=== PATIENT | female | born 1955 | race Hispanic/Latino ===

== ENCOUNTER 2023-09-21 10:14 | Observation (INO) | payer OTHER ==
--- OUTSIDE RECORDS SUMMARY | 2023-09-21 10:17 | XMS REPORT | Continuity of Care Document ---
Author Name Unknown Address [address] [facility] [place] [address] [facility] Address [address] [place] [address] Care Team Providers Care Clerk General Name Role Phone Ruiz Sandhu Primary Care Physician + [phone] ROBIN SHAH Attending Clinician Unavailable [email or web address] Attending Clinician Unavaila ble SCOOTER WALLS Attending Clinician Unavail able Vaccine, Adc Family Medicine Attending Clinician Unavailable Scooter Walls DO Attending Clinician [phone] Vaccine, Ang Db Cbc Fam Attending Clinician Unav Tushar Courtney MD Attending Clinician [phone] TUSHAR TIPTON Attending Clinician Unavailable Doctor Unassigned, Colma Attending Clinician U navailable [email or web address] Admitting Clinician Unavaila ble Payers Payer Name Policy Type Policy Number Effective Date Expirati on Date Source MEDICARE PART A AND B [id number] 2018 00:00:00 MEDICARE PART A \T\ B [id number] 2018 00:00:00 [place] [facility] [id number] 2018 00:00:00 Allergies, Adverse Reactions, Alerts Allergy Name Allergy Type Status Severity Reaction(s) Onset Date Inactive Date Treating Clinician Comments Source NO KNOWN ALLERGIE S Drug Class Active [facility] Social History Social Habit Start Date Stop Date Quantity Comments Source Exposure to SARS-CoV-2 (event) Not sure [facility] Sex Assigned At 1955 00:00:00 1955 00:00:00 [facility] Smoking Status Start Date Stop Date Source Tobacco smoking consumption unknown [facility] Procedures Procedure Date / Time Performed Performing Clinicia n Source SARS-COV-2 COVID-19 VACCINE 18 YRS+, BIVALENT 0.5ML, IM (MODERNA BOOSTER) 2022-05-28 13:34:36 Doctor Unassigned, Colma [facility] SARS-COV-2 COVID-19 VACCINE BOOSTER,0.25ML,IM (MODERNA) 2021-12-11 14:03:09 Doctor Unassigned, Colma [facility] ASSIGNMENT OF BENEFITS 2021-12-11 13:42:39 Docto r Unassigned, Colma [facility] Encounters Start Date/Time End Date/Time Encounter Type Admission Type Attending [facility] Care Department Encounter ID Source 2023-08-29 08:30:00 2023-08-29 08:30:00 Outpatient ROBIN SHAH [facility] [id number] [facility] 2023-07-10 00:00:00 2023-07-10 00:00:00 Outpatient [email or web address]_S [facility] [id number] [facility] 2022-05-28 10:00:00 2022-05-28 10:00:00 Outpatient SCOOTER SWAN [facility] [id number] [facility] 2022-05-28 10:00:00 2022-05-28 10:00:00 Imm/Inj Visit Vaccine, Adc Family Medicine Scooter Walls [facility] [id number] [facility] 2022-05-28 08:30:00 2022-05-28 08:30:00 Outpatient Ej [facility] [id number] [facility] 2021-12-11 09:00:00 2021-12-11 09:10:00 Imm/Inj Visit Vaccine, Ang Db Cbc Tushar Olvera [facility] [id number] [facility] 2021-12-11 09:00:00 2021-12-11 09:00:00 Outpatient TUSHAR SUAREZ [facility] [id number] [facility] 2021-12-11 00:00:00 2021-12-11 00:00:00 Orders Only Doctor Unassigned, Colma [facility] [id number] [facility] 2021-05-29 15:20:00 2021-05-29 15:25:35 Outpatient SCOOTER SWAN [facility] [id number] [facility]
--- NOTE | 2023-09-21 10:57 | RAD REPORT ---
EXAM DESCRIPTION: CT - Ct Stroke Brain Wo Cont - 09/21/2023 10:47 am CLINICAL HISTORY: STROKE ALERT COMPARISON: No comparisons TECHNIQUE: Noncontrast head CT images were obtained without IV contrast. Multiplanar reformats were generated and reviewed. All CT scans are performed using dose optimization technique as appropriate and may include automated exposure control or mA/KV adjustment according to patient size. FINDINGS: No intracranial hemorrhage, mass, or edema. Midline structures are unremarkable. Normal ventricular caliber for age. Godinez-white matter differentiation is preserved, without evidence of acute infarct. No abnormal extra- axial fluid collections. Mastoid air cells and visualized portions of the paranasal sinuses are clear. No acute bony findings. IMPRESSION: No evidence of an acute intracranial process. The findings were communicated to Davey Fajardo on 09/21/2023 at 10:53 hours.
[2023-09-21] MEDS ORDERED: TENECTEPLASE 50 MG/10 ML VIAL IV ONE (10:59)
[2023-09-21 11:02] LABS: Absolute Lymphocytes (CBC) 1.5 K/uL (0.7-4.9); Hematocrit 40.3 % (36.0-45.0); Lymphocytes % 14.1 % (15.3-44.8); MCV 88.2 fL (80-100); MPV 8.6 fL (7.6-11.3); Platelets 295 thou/uL (152-406); RBC Red Blood Cell Count 4.58 M/uL (3.86-4.86)
[2023-09-21 11:12] LABS: Protime INR 1.05
[2023-09-21 11:21] LABS: Troponin High Sensitivity 4.1 pg/mL (<58.9)
--- NOTE | 2023-09-21 11:21 | RAD REPORT ---
EXAM DESCRIPTION: CT - Neck Angio - 09/21/2023 10:55 am CLINICAL HISTORY: dizziness COMPARISON: No comparisons TECHNIQUE: Axial CT angiography images of the head was performed with multiplanar and maximum intens ity projection reconstructions. Images performed following intravenous administration of 100mL Isovue 370. All CT scans are performed using dose optimization technique as appropriate and may include automated exposure control or mA/KV adjustment according to patient size. Quantification of carotid stenosis, if any, is performed according to NASCET criteria. FINDINGS: A left aortic arch is identified with normal three vessel configuration of the great vesse ls. No significant flow abnormality is seen of the common carotid bilaterally. No significant stenosis is identified involving the cervical segments of both internal carotid arteri es. Normal flow is seen within both vertebral arteries. Multiple hypodense right thyroid nodules, without a discrete dominant nodule. IMPRESSION: No significant flow abnormality of the neck vessels is identified. CAROTID STENOSIS REFERENCE USING NASCET CRITERIA: % ICA stenosis = (1 - narrowest ICA diameter/diameter of distal cervical ICA) x 100. Mild - <50% stenosis. Moderate - 50-69% stenosis. Severe - 70-94% stenosis. Near occlusion - 95-99% stenosis. Occluded - 100% stenosis.
--- NOTE | 2023-09-21 11:24 | RAD REPORT ---
EXAM DESCRIPTION: CT - Head angio - 09/21/2023 10:55 am CLINICAL HISTORY: DIZZINESS COMPARISON: Ct Stroke Brain Wo Cont dated 09/21/2023 TECHNIQUE: Axial CT angiography images of the head was performed with multiplanar and maximum intens ity projection reconstructions. Images performed following intravenous administration of 100mL Isovue 370. All CT scans are performed using dose optimization technique as appropriate and may include automated exposure control or mA/KV adjustment according to patient size. FINDINGS: No evidence of large vessel occlusion. No evidence of aneurysm or dissection flap is detec juan. No flow-limiting stenosis or vascular malformation identified. Antegrade flow is seen in the vertebral arteries. The vertebral arteries are codominant. The visualized dural venous sinuses are grossly patent. IMPRESSION: No evidence of large vessel occlusion or flow-limiting stenosis.
--- NOTE | 2023-09-21 11:30 | RAD REPORT ---
EXAM DESCRIPTION: Otto Single View09/21/2023 11:16 am CLINICAL HISTORY: dizziness COMPARISON: No comparisons TECHNIQUE: Portable AP view of the chest. FINDINGS: The lungs are clear. No pneumothorax or effusion. The cardiomediastinal contours are unre markable. IMPRESSION: No acute cardiopulmonary process.
[2023-09-21 11:41] LABS: Potassium 4.3 mEq/L (3.5-5.1)
--- NOTE | 2023-09-21 12:16 | EDPHYS ---
Physician Documentation [facility] Name: Tri Patterson Age: 68 yrs Sex: Female : 1955 Arrival Date: 09/21/2023 Time: 10:14 Bed 15 Private MD: ED Physician Davey Fajardo HPI: 09/21 10:38 This 68 yrs old Female presents to ER via Ambulatory with complaints of rn Dizziness, Vomiting, Blood Pressure Issue. 10:38 The patient presents with feeling off balance. Onset: The symptoms/episode rn began/occurred this morning, at 08:00. Modifying factors: The symptoms are alleviated by holding head still, the symptoms are aggravated by movement of head, standing up, changing position. Associated signs and symptoms: Pertinent positives: nausea, vomiting, Pertinent negatives: chest pain, confusion, focal weakness, head injury, seizure, shortness of breath. Severity of symptoms: At their worst the symptoms were moderate in the emergency department the symptoms are unchanged. The patient has experienced a previous episode. Patient reports woke up this morning completely fine, started her day and had approximately 8 AM today felt sudden onset of dizziness and off-balance. Associated with nausea and vomiting. Feels like needs help or is going to fall. Denies focal weakness or numbness. No head injury or syncope. Has had vertigo before in the past but states this feels different.. Historical: - Allergies: 10:18 Sulfa (Sulfonamide Antibiotics); ll1 - Home Meds: 14:08 aspirin 81 mg Oral chew 1 tab once daily [Active]; carvedilol 12.5 mg oral tablet 1 tab tl4 2 times per day [Active]; pravastatin 40 mg Oral tab 1 tab once daily [Active]; metformin 1 Oral tab 1 tab 2 times per day [Active]; repaglinide 1 mg oral tablet 1 tabs once [Active]; Exforge 10-320 mg oral tablet 1 tab daily [Active]; levothyroxine 50 mcg tablet 1 tab daily [Active]; - PMHx: 10:18 Diabetes - NIDDM; High Cholesterol; Hypertension; ll1 - Immunization history:: Adult Immunizations up to date. - Social history:: Smoking status: Patient denies any tobacco usage or history of. - Family history:: not pertinent. - Hospitalizations: : No recent hospitalization is reported. ROS: 10:38 Constitutional: Negative for fever, chills, and weight loss, Neck: Negative for injury, rn pain, and swelling, Cardiovascular: Negative for chest pain, palpitations, and edema, Respiratory: Negative for shortness of breath, cough, wheezing, and pleuritic chest pain, Abdomen/GI: Negative for abdominal pain, and constipation, MS/Extremity: Negative for injury and deformity, Skin: Negative for injury, rash, and discoloration, Neuro: Negative for headache, weakness, numbness, tingling, and seizure, Exam: 10:38 Constitutional: This is a well developed, well nourished patient who is awake, alert, rn and in no acute distress. Head/Face: Normocephalic, atraumatic. Eyes: Pupils equal round and reactive to light, extra-ocular motions intact. Cardiovascular: Regular rate and rhythm. No pulse deficits. Respiratory: No increased work of breathing, no retractions or nasal flaring. MS/ Extremity: Pulses equal, no cyanosis. Neurovascular intact. Full, normal range of motion. Equal circumference. Neuro: Awake and alert, GCS 15, oriented to person, place, time, and situation. Cranial nerves II-XII grossly intact. Motor strength 5/5 in all extremities. Sensory grossly intact. Normal [id number] and [id number]-[id number] testing. Unsteady when standing and requires assistance to ambulate. 14:36 ECG was reviewed by the Attending Physician. rn Vital Signs: 10:25 BP 180 / 75; Pulse 68; Resp 16; Temp 98.1; Pulse Ox 99% ; Pain 0/10; ll1 10:55 BP 160 / 75; Pulse 73; Resp 18; Pulse Ox 100% on R/A; db 11:00 BP 155 / 70; Pulse 57; Resp 18; Pulse Ox 100% on R/A; db 11:03 Weight 73.03 kg (M); db 11:15 BP 147 / 70; Pulse 61; Resp 17; Pulse Ox 100% on R/A; db 11:30 BP 148 / 68; Pulse 63; Resp 18; Pulse Ox 100% on R/A; db 11:45 BP 138 / 67; Pulse 57; Resp 18; Pulse Ox 100% on R/A; db 12:00 BP 152 / 96; Pulse 65; Resp 16; Pulse Ox 100% on R/A; db 12:30 BP 135 / 68; Pulse 61; Resp 15; Pulse Ox 100% ; tl4 13:00 BP 129 / 64; Pulse 64; Resp 17; Pulse Ox 100% on R/A; Pain 0/10; tl4 13:30 BP 125 / 62; Pulse 62; Resp 16; Pulse Ox 100% on R/A; tl4 14:00 BP 132 / 54; Pulse 76; Resp 19; Pulse Ox 100% on R/A; Pain 0/10; tl4 10:25 Pain Scale: Adult ll1 13:00 Pain Scale: Adult tl4 14:00 Pain Scale: Adult tl4 NIH Stroke Scale Scores: 10:38 NIHSS Score: 0 db 10:38 NIHSS Score: 0 rn MDM: 10:18 Patient medically screened. rn 10:44 Management of patient was discussed with the following: Ship Scraper: Dr. Ugalde was rn consulted, recommends TNKase if CT head negative, given sudden onset and risk factors. . 10:52 ED course: Dr. Mcclure reports no acute findings on CT head. Will consent to give TNKase.rn 11:13 ED course: Had long discussion and consent for TNKase with and . They both rn agree TNKase is the better alternative at this time as the TNKase window is closing soon. states family member recently had a stroke and improved with the same medications so would like it administered.. 12:13 Differential diagnosis: cardiac arrhythmia, CVA, generalized weakness, hypovolemia, rn idiopathic dizziness, syncope, TIA, vertigo. Data reviewed: vital signs, nurses notes, lab test result(s), EKG, radiologic studies, CT scan, and as a result, I will admit patient. Consideration of Admission/Observation Patient was admitted/placed on observation. Escalation of care including admission/observation considered. Management of patient was discussed with the following: Hospitalist: Spoke with hospitalist, will admit. Historians other than the Patient: Spouse/Significant Other: When patient was in CT scan, spouse gave a lot of the HPI as well.. Counseling: I had a detailed discussion with the patient and/or guardian regarding the historical points, exam findings, and any diagnostic results supporting the discharge/admit diagnosis, lab results, radiology results, the need for further work-up and treatment in the hospital. Response to treatment: There is no appreciated change of the patient's symptoms at this time. ED course: I personally spent 35 minutes engaged in work directly related to the individual patient's care. This does not include any time spent performing procedures. The patient has been deemed critically ill because of suspicion of acute stroke requiring timing and administration of TNKase, consultation with multiple physicians, imaging reviews, consent and care with multiple reevaluations. 09/21 10:37 Order name: Basic Metabolic Panel; Complete Time: 11: rn 09/21 10:37 Order name: CBC with Diff; Complete Time: 11: rn 09/21 10:37 Order name: High Sensitivity Troponin; Complete Time: : rn 09/21 10:37 Order name: Protime (+inr); Complete Time: : rn 09/21 10:37 Order name: Ptt, Activated; Complete Time: : rn 09/21 11:08 Order name: CREATININE WHOLE BLOOD; Complete Time: 11: EDMS 09/21 11:24 Order name: Glucose, Ancillary Testing; Complete Time: : EDMS 09/21 12:03 Order name: Urinalysis w/ reflexes; Complete Time: 12:23 db 09/21 13:42 Order name: CBC with Automated Diff EDMS 09/21 13:42 Order name: CBC with Automated Diff EDMS 09/21 13:42 Order name: Comprehensive Metabolic Panel EDMS 09/21 13:42 Order name: Comprehensive Metabolic Panel EDMS 09/21 13:42 Order name: Lipid Profile EDMS 09/21 13:42 Order name: Lipid Profile EDMS 09/21 13:42 Order name: Magnesium EDMS 09/21 13:42 Order name: Magnesium EDMS 09/21 13:42 Order name: Phosphorus EDMS 09/21 13:42 Order name: Phosphorus EDMS 09/21 13:42 Order name: T4,Total EDMS 09/21 13:42 Order name: T4,Total EDMS 09/21 13:42 Order name: Thyroid Stimulating Hormone EDMS 09/21 13:42 Order name: Thyroid Stimulating Hormone EDMS 09/21 10:37 Order name: CT Head Angio; Complete Time: 11: rn 09/21 10:37 Order name: CT Neck Angio; Complete Time: 11: rn 09/21 10:37 Order name: CT Stroke Brain w/o Contrast; Complete Time: 11: rn 09/21 10:37 Order name: Stroke CXR 1 View; Complete Time: 11:41 rn 09/21 13:42 Order name: Echo with Doppler EDOR 09/21 13:42 Order name: Brain Wo Cont EDOR 09/21 13:42 Order name: Brain Wo Cont EDOR 09/21 10:37 Order name: EKG; Complete Time: 10:38 rn 09/21 13:42 Order name: IRF Screen EDOR 09/21 13:42 Order name: Physical Therapy Consult EDOR 09/21 13:42 Order name: Speech Therapy Consult [facility] 09/21 10:37 Order name: Accucheck; Complete Time: 11: rn 09/21 10:37 Order name: Cardiac monitoring; Complete Time: rn 09/21 10:37 Order name: EKG - Nurse/Tech; Complete Time: : rn 09/21 10:37 Order name: IV Saline Lock; Complete Time: : rn 09/21 10:37 Order name: Labs collected and sent; Complete Time: rn 09/21 10:37 Order name: NPO; Complete Time: rn 09/21 10:37 Order name: O2 Per Protocol; Complete Time: : rn 09/21 10:37 Order name: O2 Sat Monitoring; Complete Time: rn 09/21 10:37 Order name: Stroke Swallow Screen; Complete Time: 11:16 rn EC:36 Rate is 59 beats/min. Rhythm is regular. QRS [place] is Normal. [place] interval is normal. QRS rn interval is normal. QT interval is normal. No Q waves. T waves are Normal. No ST changes noted. Clinical impression: Sinus bradycardia. Interpreted by me. Reviewed by me. Administered Medications: 11:07 Drug: TNK FOR STROKE - Tenecteplase IV 0.25 mg/kg IV at per protocol once; MAX db DOSE 25 mg, IVP over 5 seconds {Co-Signature: ll1 (Akin Rudolph RN).} Route: IV; Rate: per protocol; Site: right antecubital; 14:37 Follow up: Response: No adverse reaction tl4 14:37 Follow up: IV Status: Completed infusion tl4 12:24 Drug: foLIC Acid IVPB 1 mg IVPB once Route: IVPB; Infused Over: 5 mins; Site: right tl4 antecubital; 14:37 Follow up: Response: No adverse reaction; IV Status: Completed infusion tl4 12:24 Drug: Meclizine PO 50 mg PO once Route: PO; tl4 14:36 Follow up: Response: No adverse reaction; Marked relief of symptoms tl4 Point of Care Testing: Blood Glucose: 11:11 Blood Glucose: 184 mg/dL; db Ranges: Critical Glucose Levels:Adult <50 mg/dl or >400 mg/dl <40 mg/dl or >180 mg/dl Disposition Summary: 09/21/23 12:16 Hospitalization Ordered Notes: Hospitalization Status: Inpatient Admission rn Provider: Andrew Bermeo rn Condition: Stable rn Problem: new rn Symptoms: are unchanged rn Bed/Room Type: Standard rn Location: Intensive Care Unit(09/21/23 14:21) bd Room Assignment: 5-(09/21/23 14:21) bd Diagnosis - Cerebral infarction, unspecified rn - Dizziness and giddiness rn - Ataxia, unspecified rn Forms: - Medication Reconciliation Form rn - SBAR form rn - Leadership Thank You Letter churn operator time excluding procedures: 12:13 Critical care time: Bedside Care: 30 minutes, Consultation: 5 minutes. Total time: 35 rn minutes NIH Stroke Scale - NIH Stroke Score Date: 09/21/2023 Time: 10:38 Total Score = 0 10. Dysarthria (speech clarity - read or repeat words) - 0(Normal) 11. Extinction and Inattention (visual/tactile/auditory/spatial/personal) - 0(No abnormality) 1a. Level of Consciousness (LOC) - 0(Alert) 1b. Level of Consciousness (LOC) (Month \T\ Age) - 0(Both) 1c. LOC Commands (Open \T\ Closes Eyes/Head Of [employer]) - 0(Both) 2. Best Gaze (Lateral Gaze Paresis) - 0(Normal) 3. Visual Field Loss - 0(No visual loss) 4. Facial Palsy - 0(Normal) 5a. Left Arm: Motor (10-second hold) - 0(No drift) 5b. Right Arm: Motor (10-second hold) - 0(No drift) 6a. Left Leg: Motor (5-second hold - always test supine) - 0(No drift) 6b. Right Leg: Motor (5-second hold - always test supine) - 0(No drift) 7. Limb Ataxia (finger/nose \T\ heel/araujo - test with eyes open) - 0(Absent) 8. Sensory Loss (pinprick arms/legs/face) - 0(Normal) 9. Best Language: Aphasia (description/naming/reading) - 0(No aphasia) Initials: arianna NIH Stroke Scale - NIH Stroke Score Date: 09/21/2023 Time: 10:38 Total Score = 0 10. Dysarthria (speech clarity - read or repeat words) - 0(Normal) 11. Extinction and Inattention (visual/tactile/auditory/spatial/personal) - 0(No abnormality) 1a. Level of Consciousness (LOC) - 0(Alert) 1b. Level of Consciousness (LOC) (Month \T\ Age) - 0(Both) 1c. LOC Commands (Open \T\ Closes Eyes/Head Of [employer]) - 0(Both) 2. Best Gaze (Lateral Gaze Paresis) - 0(Normal) 3. Visual Field Loss - 0(No visual loss) 4. Facial Palsy - 0(Normal) 5a. Left Arm: Motor (10-second hold) - 0(No drift) 5b. Right Arm: Motor (10-second hold) - 0(No drift) 6a. Left Leg: Motor (5-second hold - always test supine) - 0(No drift) 6b. Right Leg: Motor (5-second hold - always test supine) - 0(No drift) 7. Limb Ataxia (finger/nose \T\ heel/araujo - test with eyes open) - 0(Absent) 8. Sensory Loss (pinprick arms/legs/face) - 0(Normal) 9. Best Language: Aphasia (description/naming/reading) - 0(No aphasia) Initials: rn Signatures: Dispatcher [employer] EDNasima Carpio Roman, MD MD rn Lewis, Lynsay RN RN 1 Yamilex Huber RN RN db Kaci, Balaji tl4 Akin Rudolph RN 1 Corrections: (The following items were deleted from the chart) 13:50 12:16 rn bd 14:08 13:50 218 bd 1 14:21 12:16 Telemetry/MedSurg (Inpatient) anastacio 14:21 14:08 ll1 bd
--- NOTE | 2023-09-21 12:16 | ER ---
Nurse's Notes [facility] Name: Tri Patterson Age: 68 yrs Sex: Female : 1955 Arrival Date: 09/21/2023 Time: 10:14 Bed 15 Private MD: Diagnosis: Cerebral infarction, unspecified;Dizziness and giddiness;Ataxia, unspecified Presentation: 09/21 10:25 Chief complaint: Patient states: Sudden onset dizziness, N/V around 8 AM. BP wouldn't ll1 register at home. Coronavirus screen: Client denies travel out of the [place] in the last 14 days. At this time, the client does not indicate any symptoms associated with coronavirus-19. Ebola Screen: Patient denies travel to an Ebola-affected area in the 21 days before illness onset. Initial Sepsis Screen: Does the patient meet any 2 criteria? No. Patient's initial sepsis screen is negative. Does the patient have a suspected source of infection? No. Patient's initial sepsis screen is negative. Risk Assessment: Do you want to hurt yourself or someone else? Patient reports no desire to harm self or others. Onset of symptoms was September 21, 2023. 10:25 Method Of Arrival: Ambulatory ll1 10:25 Acuity: NORBERTO 3 ll1 10:38 Acuity: NORBERTO 2 db 10:38 No acute neurological deficit is noted. db Triage Assessment: 10:29 General: Appears uncomfortable, Behavior is calm, cooperative, appropriate for age. ll1 General: Reports fatigue for. Pain: Denies pain. Neuro: Reports dizziness, weakness. Cardiovascular: Reports fatigue, lightheadedness, nausea, vomiting. GI: Reports nausea, vomiting. 14:41 The onset of the patients symptoms was September 21, 2023 at 08:00. tl4 Stroke Activation: Symtpom onset >3 hours and < 6 hours Physician: Stroke Attending; Name: ; Notified At: ; Arrived At: Physician: Chief Stroke Resident; Name: ; Notified At: ; Arrived At: Physician: Stroke Resident; Name: ; Notified At: ; Arrived At: Physician: ED Attending; Name: JAY; Notified At: 10:38; Arrived At: Physician: ED Resident; Name: ; Notified At: ; Arrived At: Historical: - Allergies: 10:18 Sulfa (Sulfonamide Antibiotics); ll1 - Home Meds: 14:08 aspirin 81 mg Oral chew 1 tab once daily [Active]; carvedilol 12.5 mg oral tablet 1 tab tl4 2 times per day [Active]; pravastatin 40 mg Oral tab 1 tab once daily [Active]; metformin 1 Oral tab 1 tab 2 times per day [Active]; repaglinide 1 mg oral tablet 1 tabs once [Active]; Exforge 10-320 mg oral tablet 1 tab daily [Active]; levothyroxine 50 mcg tablet 1 tab daily [Active]; - PMHx: 10:18 Diabetes - NIDDM; High Cholesterol; Hypertension; ll1 - Immunization history:: Adult Immunizations up to date. - Social history:: Smoking status: Patient denies any tobacco usage or history of. - Family history:: not pertinent. - Hospitalizations: : No recent hospitalization is reported. Screenin:40 [facility] ED Fall Risk Assessment (Adult) History of falling in the last 3 months, db including since admission No falls in past 3 months (0 pts) Confusion or Disorientation No (0 pts) Intoxicated or Sedated No (0 pts) Impaired Gait No (0 pts) Mobility Assist Device Used No (0 pt) Altered Elimination No (0 pt) Score/Fall Risk Level 0 - 2 = Low Risk Oriented to surroundings, Maintained a safe environment. Abuse screen: Denies threats or abuse. Denies injuries from another. Nutritional screening: No deficits noted. Tuberculosis screening: No symptoms or risk factors identified. Assessment: 10:20 Reassessment: DR FAJARDO IS AT PATIENT BEDSIDE. db 10:38 Reassessment: Patient appears in no apparent distress at this time. CODE STROKE CALLED db PER DR. FAJARDO. 10:38 Reassessment: PATIENT AMBULATORY TO RESTROOM. db 10:38 Reassessment: PATIENT TO RESTROOM THEN CT. db 10:38 Reassessment: Patient appears in no apparent distress at this time. Patient is alert, db oriented x 3, equal unlabored respirations, skin warm/dry/pink. Neuro: Level of Consciousness is awake, alert, obeys commands, Oriented to person, place, time, situation, Reports dizziness. 11:00 TNKase (Tenecteplase) Screening: Indications: Definite evidence of stroke, ischemic, db embolic, or hypertensive: Yes. Treatment will start within 4.5 hours onset of symptoms: Yes. No evidence of intracranial hemorrhage or CT of head and no evidence of peripheral hemorrhage or recent CVA: Yes. Consent for thrombolytic therapy: Yes. 11:00 Reassessment: CONSENT FOR TNKase OBTAINED. db 11:10 VAN Scoring: Arm Drift: Patients demonstrates NO arm weakness. Patient is VAN Negative. db Visual Disturbance: No visual disturbance noted. Aphasia: No aphasia noted. Neglect: No neglect noted. Faith Swallow Protocol Exclusion Criteria: Exclusion Criteria Result: Proceed Brief Cognitive Screen What is your name? Normal, Where are you right now? Normal, What year is it? Normal. Oral Mechanism Examination Facial Symmetry: Normal, Motion: Normal, Lip Closure: Normal, Oral Mechanism Result: Normal. 3 oz Water Swallow Challenge: Pt able to drink all water without stopping, coughing, choking or throat clearing: Yes Result: PASS. General: Appears in no apparent distress. comfortable, Behavior is calm, cooperative. Neuro: Level of Consciousness is awake, alert, obeys commands, Oriented to person, place, time, situation, Cook Italian Style Food are equal bilaterally Moves all extremities. Gait is steady, Speech is normal, Facial symmetry appears normal, Reports dizziness, since 0800. 12:07 Reassessment: REPORT GIVEN TO CAMRYN PHAN. db 12:15 Reassessment: Patient and/or family updated on plan of care and expected duration. Pain tl4 level reassessed. Patient is alert, oriented x 3, equal unlabored respirations, skin warm/dry/pink. Patient denies pain at this time. Patient states feeling better. Cardiovascular: Denies chest pain, lightheadedness, palpitations, shortness of breath. Respiratory: Denies shortness of breath. 13:00 Reassessment: No changes from previously documented assessment. Patient and/or family tl4 updated on plan of care and expected duration. Pain level reassessed. Patient is alert, oriented x 3, equal unlabored respirations, skin warm/dry/pink. Patient denies pain at this time. 14:00 Reassessment: No changes from previously documented assessment. Patient and/or family tl4 updated on plan of care and expected duration. Pain level reassessed. Patient is alert, oriented x 3, equal unlabored respirations, skin warm/dry/pink. Patient denies pain at this time. 14:10 Reassessment: Pt to MRI. tl4 14:53 Reassessment: Report given to CAMRYN Ho in ICU. tl4 Vital Signs: 10:25 BP 180 / 75; Pulse 68; Resp 16; Temp 98.1; Pulse Ox 99% ; Pain 0/10; ll1 10:55 BP 160 / 75; Pulse 73; Resp 18; Pulse Ox 100% on R/A; db 11:00 BP 155 / 70; Pulse 57; Resp 18; Pulse Ox 100% on R/A; db 11:03 Weight 73.03 kg (M); db 11:15 BP 147 / 70; Pulse 61; Resp 17; Pulse Ox 100% on R/A; db 11:30 BP 148 / 68; Pulse 63; Resp 18; Pulse Ox 100% on R/A; db 11:45 BP 138 / 67; Pulse 57; Resp 18; Pulse Ox 100% on R/A; db 12:00 BP 152 / 96; Pulse 65; Resp 16; Pulse Ox 100% on R/A; db 12:30 BP 135 / 68; Pulse 61; Resp 15; Pulse Ox 100% ; tl4 13:00 BP 129 / 64; Pulse 64; Resp 17; Pulse Ox 100% on R/A; Pain 0/10; tl4 13:30 BP 125 / 62; Pulse 62; Resp 16; Pulse Ox 100% on R/A; tl4 14:00 BP 132 / 54; Pulse 76; Resp 19; Pulse Ox 100% on R/A; Pain 0/10; tl4 10:25 Pain Scale: Adult ll1 13:00 Pain Scale: Adult tl4 14:00 Pain Scale: Adult tl4 NIH Stroke Scale Scores: 10:38 NIHSS Score: 0 db 10:38 NIHSS Score: 0 geotechnical intern Course: 10:17 Patient arrived in ED. im 10:18 Davey Fajardo MD is Attending Physician. rn 10:18 Arm band placed on Patient placed in an exam room, on a stretcher. ll1 10:28 Triage completed. ll1 10:40 Yamilex Huber, CAMRYN is Primary Nurse. db 10:48 CT Stroke Brain w/o Contrast In Process Unspecified. EDMS 10:50 Inserted saline lock: 20 gauge in right antecubital area, using aseptic technique. db Blood collected. 10:57 CT Head Angio In Process Unspecified. EDMS 10:57 CT Neck Angio In Process Unspecified. EDMS 11:06 EKG done, by ED staff, reviewed by Davey Fajardo MD. db 11:06 Initial lab(s) drawn, by me, sent to lab. db 11:10 Patient has correct armband on for positive identification. Bed in low position. Call db light in reach. Side rails up X2. Provided Education on: STROKE, TNK. Client placed on continuous cardiac and pulse oximetry monitoring. NIBP monitoring applied. Warm blanket given. 11:18 Stroke CXR 1 View In Process Unspecified. EDMS 12:13 Urinalysis w/ reflexes Sent. tl4 12:16 Andrew Bermeo MD is Hospitalizing Provider. rn 14:11 No provider procedures requiring assistance completed. tl4 14:41 Patient admitted, IV remains in place. tl4 Administered Medications: 11:07 Drug: TNK FOR STROKE - Tenecteplase IV 0.25 mg/kg IV at per protocol once; MAX db DOSE 25 mg, IVP over 5 seconds {Co-Signature: ll1 (Akin Rudolph RN).} Route: IV; Rate: per protocol; Site: right antecubital; 14:37 Follow up: Response: No adverse reaction tl4 14:37 Follow up: IV Status: Completed infusion tl4 12:24 Drug: foLIC Acid IVPB 1 mg IVPB once Route: IVPB; Infused Over: 5 mins; Site: right tl4 antecubital; 14:37 Follow up: Response: No adverse reaction; IV Status: Completed infusion tl4 12:24 Drug: Meclizine PO 50 mg PO once Route: PO; tl4 14:36 Follow up: Response: No adverse reaction; Marked relief of symptoms tl4 Medication: 11:10 VIS not applicable for this client. db Point of Care Testing: Blood Glucose: 11:11 Blood Glucose: 184 mg/dL; db Ranges: Outcome: 12:16 Decision to Hospitalize by Provider. rn 14:41 Instructed on the need for admit, tl4 14:50 Admitted to ICU accompanied by nurse, via wheelchair, room 5, Report called to Georgia Caruso RN 14:50 Condition: stable 15:13 Patient left the ED. ll1 NIH Stroke Scale - NIH Stroke Score Date: 09/21/2023 Time: 10:38 Total Score = 0 10. Dysarthria (speech clarity - read or repeat words) - 0(Normal) 11. Extinction and Inattention (visual/tactile/auditory/spatial/personal) - 0(No abnormality) 1a. Level of Consciousness (LOC) - 0(Alert) 1b. Level of Consciousness (LOC) (Month \T\ Age) - 0(Both) 1c. LOC Commands (Open \T\ Closes Eyes/Window Treatment Installer) - 0(Both) 2. Best Gaze (Lateral Gaze Paresis) - 0(Normal) 3. Visual Field Loss - 0(No visual loss) 4. Facial Palsy - 0(Normal) 5a. Left Arm: Motor (10-second hold) - 0(No drift) 5b. Right Arm: Motor (10-second hold) - 0(No drift) 6a. Left Leg: Motor (5-second hold - always test supine) - 0(No drift) 6b. Right Leg: Motor (5-second hold - always test supine) - 0(No drift) 7. Limb Ataxia (finger/nose \T\ heel/araujo - test with eyes open) - 0(Absent) 8. Sensory Loss (pinprick arms/legs/face) - 0(Normal) 9. Best Language: Aphasia (description/naming/reading) - 0(No aphasia) Initials: db NIH Stroke Scale - NIH Stroke Score Date: 09/21/2023 Time: 38 Total Score = 0 10. Dysarthria (speech clarity - read or repeat words) - 0(Normal) 11. Extinction and Inattention (visual/tactile/auditory/spatial/personal) - 0(No abnormality) 1a. Level of Consciousness (LOC) - 0(Alert) 1b. Level of Consciousness (LOC) (Month \T\ Age) - 0(Both) 1c. LOC Commands (Open \T\ Closes Eyes/Window Treatment Installer) - 0(Both) 2. Best Gaze (Lateral Gaze Paresis) - 0(Normal) 3. Visual Field Loss - 0(No visual loss) 4. Facial Palsy - 0(Normal) 5a. Left Arm: Motor (10-second hold) - 0(No drift) 5b. Right Arm: Motor (10-second hold) - 0(No drift) 6a. Left Leg: Motor (5-second hold - always test supine) - 0(No drift) 6b. Right Leg: Motor (5-second hold - always test supine) - 0(No drift) 7. Limb Ataxia (finger/nose \T\ heel/araujo - test with eyes open) - 0(Absent) 8. Sensory Loss (pinprick arms/legs/face) - 0(Normal) 9. Best Language: Aphasia (description/naming/reading) - 0(No aphasia) Initials: rn Signatures: Dispatcher [employer] EDDavey Ulloa MD MD rn Lewis, Lynsay, RN RN ll1 Yamilex Huber, RN RN Radha Bowlingdamonisha, Balaji tl4 Akin Rudolph RN ll1
[2023-09-21 12:17] LABS: Specific Gravity 1.011 (1.005-1.030); Urine Bilirubin NEGATIVE (Negative); Urine Blood Negative (Negative); Urine Clarity Clear (Clear); Urine Color Colorless (Yellow); Urine Glucose 1+ (Negative); Urine Protein NEGATIVE (Negative); Urine Urobilinogen Normal (Normal); Urine pH 7.5 (5.0-7.0)
[2023-09-21] MEDS ORDERED: MECLIZINE HCL 12.5 MG TAB ONE (12:17)
[2023-09-21] MEDS ORDERED: FOLIC ACID 5 MG/ML VIAL ONE (12:18)
[2023-09-21] MEDS ORDERED: ACETAMINOPHEN 500 MG TAB PO PRN (13:32)
[2023-09-21] MEDS ORDERED: ONDANSETRON 4 MG/2 ML VIAL IV PRN (13:32)
--- NOTE | 2023-09-21 13:40 | P.HP ---
Certification for Inpatient Patient admitted to: Observation With expected LOS: <2 Midnights Patient will require the following post-hospital care: None Practitioner: I am a practitioner with admitting privileges, knowledge of patient current condition, hospital course, and medical plan of care. Services: Services provided to patient in accordance with Admission requirements found in Title 42 Section 412.3 of the Code of Federal Regulations Patient History Date of Service: 09/21/23 Reason for admission: CVA History of Present Illness: Patient is a 68-year-old female who came to the hospital with vertigo as well as nausea and vomiting. Patient presented to the emergency room with ataxia. And patient was seen in the emergency room for further workup. Patient appears to have a posterior some circulation infarct. Patient continue with anti- platelet therapy and statin therapy. Patient will be admitted to the hospital for further workup. Allergies Sulfa (Sulfonamide Antibiotics) Allergy (Verified 09/21/23 15:15) Hives Home Medications: Amlodipine/Valsartan [Exforge 10-320 mg Tablet] 1 tab PO DAILY 09/21/23 Ascorbic Acid [Vitamin C] 1,000 mg PO DAILY 09/21/23 Aspirin 81 mg PO DAILY 09/21/23 Calcium Carbonate/Vitamin D3 [Caltrate 600 + D Soft Chew Tab] 1 tab PO DAILY 09/21/23 Folic Acid 800 mg PO DAILY 09/21/23 Levothyroxine [Synthroid*] 50 mcg PO DAILY 09/21/23 Mecobalamin [B12 Active] 1 tab PO DAILY 09/21/23 Metformin HCl [Metformin ER Osmotic] 1,000 mg PO BID 09/21/23 Multivitamin 1 tab PO DAILY 09/21/23 [place]-3/Dha/Epa/Fish Oil [Fish Oil 1,000 mg Softgel] 1 cap PO DAILY 09/21/23 Pravastatin [Pravachol*] 40 mg PO BEDTIME 09/21/23 Repaglinide 1 mg PO DAILY 09/21/23 Zinc Gluconate [Zinc] 50 mg PO DAILY 09/21/23 carvediloL [Carvedilol] 6.25 mg PO BID 09/21/23 Clopidogrel Bisulfate [Plavix] 75 mg PO DAILY #30 tab 09/22/23 Meclizine HCl [Antivert] 25 mg PO Q8HP PRN #20 tab.chew 09/22/23 - Past Medical/Surgical History -: HTN -: DM-2 -: hypothyroidism Past Surgical History: Patient denies surgical history - Family History Father Family History: Reviewed- Non-Contributory - Social History Smoking Status: Former smoker Alcohol use: No CD- Drugs: No Review of Systems 10-point ROS is otherwise unremarkable Physical Examination - Vital Signs Temperature: 98 F (Vitals reviewed) - Physical Exam General: Alert, In no apparent distress, Oriented x3 HEENT: Atraumatic, PERRLA, Mucous membr. moist/pink, EOMI, Sclerae nonicteric Neck: Supple, 2+ carotid pulse no bruit, No LAD, Without JVD or thyroid abnormality Respiratory: Clear to auscultation bilaterally, Normal air movement Cardiovascular: Regular rate/rhythm, Normal S1 S2, No murmurs Gastrointestinal: Normal bowel sounds, Soft and benign, Non-distended, No tenderness Musculoskeletal: No clubbing, No swelling, No tenderness Integumentary: No rashes Neurological: Normal gait, Normal speech, Normal strength at 5/5 x4 extr, Normal tone, Sensation intact, Cranial nerves 3-12 intact, Normal affect Lymphatics: No axilla or inguinal lymphadenopathy - Studies Laboratory Data (last 24 hrs) 09/21/23 09/21/23 09/21/23 10:50 10:50 10:50 WBC 10.30 Hgb 14.4 Hct 40.3 Plt Count 295 PT 11.5 INR 1.05 APTT 33.0 Sodium 130 L Potassium 4.3 BUN 17 Creatinine 0.94 Glucose 187 H Assessment & Plan - Problems (Diagnosis) (1) Acute CVA (cerebrovascular accident) Status: Acute (2) Vertigo Status: Acute (3) Nausea and vomiting Status: Acute (4) Ataxia Status: Acute - Plan 1. MRI of the brain 2. Echocardiogram and carotid Doppler 3. Anti-platelet therapy and statin therapy 4. Neurology consultation 5. Physical therapy/occupational therapy/speech therapy evaluation 6. DVT prophylaxis Discharge Plan: Home Plan to discharge in: Greater than 2 days - Advance Directives Does patient have a Living Will: No Does patient have a Durable POA for Healthcare: No - Code Status/Comfort Care Code Status Assessed: Yes Code Status: Full Code Critical Care: No Time Spent Managing PTS Care (In Minutes): 45
[2023-09-21 15:53] VITALS: BMI 27.6
[2023-09-21] MEDS: NA CHLORIDE 0.9% 1,000 ML IV SCH (16:35)
--- NOTE | 2023-09-21 18:24 | RAD REPORT ---
EXAM DESCRIPTION: MRI - Brain Wo Cont - 09/21/2023 2:56 pm CLINICAL HISTORY: Acute CVA. Dizziness COMPARISON: Head CT September 21, 2023 TECHNIQUE: Axial, sagittal, and coronal magnetic resonance images of the brain were obtained. FINDINGS: No significant abnormal signal within the brain Diffusion-weighted/ADC mapping does not reveal evidence of acute infarction. The ventricles are normal caliber. An extra-axial fluid collection is not noted. Fluid within the sinuses/mastoids is not seen IMPRESSION: No acute intracranial abnormality noted
[2023-09-21] MEDS ORDERED: ATORVASTATIN 40 MG TAB PO SCH (21:00)
[2023-09-22] MEDS: NA CHLORIDE 0.9% 1,000 ML IV SCH (03:21)
[2023-09-22 04:14] VITALS: O2SAT 99
[2023-09-22 04:53] LABS: Absolute Lymphocytes (CBC) 2.1 K/uL (0.7-4.9); Hematocrit 36.1 % (36.0-45.0); Lymphocytes % 28.1 % (15.3-44.8); MCV 88.9 fL (80-100); MPV 8.4 fL (7.6-11.3); Platelets 277 thou/uL (152-406); RBC Red Blood Cell Count 4.06 M/uL (3.86-4.86)
[2023-09-22 05:09] LABS: Albumin 3.5 g/dL (3.4-5.0); Bilirubin Total 0.4 mg/dL (0.2-1.0); Magnesium 1.8 mg/dL (1.6-2.4); Phosphorus 3.4 mg/dL (2.5-4.9); Potassium 4.5 mEq/L (3.5-5.1); Protein, Total 6.6 g/dL (6.4-8.2); T4,Total 10.4 ug/dL (4.8-13.9); Thyroid Stimulating Hormone 1.59 uIU/mL (0.358-3.740)
[2023-09-22] MEDS ORDERED: ASPIRIN EC 81 MG TAB PO ONE (08:20)
[2023-09-22] MEDS ORDERED: ASPIRIN EC 81 MG TAB PO SCH (09:00)
[2023-09-22] MEDS ORDERED: ENOXAPARIN 40 MG/0.4 ML SQ SCH (09:00)
--- NOTE | 2023-09-22 11:41 | RAD REPORT ---
EXAM DESCRIPTION: CT - Head Brain Wo Cont - 09/22/2023 11:33 am CLINICAL HISTORY: CVA. Status post TNK COMPARISON: September 21, 2023 TECHNIQUE: Computed axial tomography of the head was obtained. IV contrast was not requested. All CT scans are performed using dose optimization technique as appropriate and may include automated exposure control or mA/KV adjustment according to patient size. FINDINGS: An intracranial bleed is not seen The ventricles are normal in caliber No extra-axial fluid collection is noted. No significant hypodensity within the brain Small amount of fluid within the sphenoid sinus IMPRESSION: No intracranial bleed
[2023-09-22 13:59] VITALS: BP 149/94
--- NOTE | 2023-09-23 07:08 | ECHO ---
HEIGHT: 5 ft 4 in WEIGHT: 161 lb 0 oz DATE OF STUDY: 09/22/[address]: Andrew Bermeo MD 2-DIMENSIONAL: YES M.MODE: YES DOPPLER: YES COLOR FLOW: YES TDS: PORTABLE: YES DEFINITY: BUBBLE STUDY: DIAGNOSIS: STROKE CARDIAC HISTORY: CATHERIZATION: SURGERY: PROSTHETIC VALVE: PACEMAKER: MEASUREMENTS (cm) DIASTOLIC (NORMALS) SYSTOLIC (NORMALS) IVSd 0.8 (0.6-1.2) LA Diam 3.4 (1.9-4.0) LVEF 60-65% LVIDd 4.7 (3.5-5.7) LVIDs 2.6 (2.0-3.5) %FS 44% LVPWd 0.9 (0.6-1.2) Ao Diam 2.9 (2.0-3.7) 2 DIMENSIONAL ASSESSMENT: RIGHT ATRIUM: NORMAL LEFT ATRIUM: NORMAL RIGHT VENTRICLE: NORMAL LEFT VENTRICLE: NORMAL TRICUSPID VALVE: NORMAL MITRAL VALVE: NORMAL PULMONIC VALVE: NOT WELL SEEN AORTIC VALVE: NORMAL PERICARDIAL EFFUSION: AORTIC ROOT: LEFT VENTRICULAR WALL MOTION: DOPPLER/COLOR FLOW: COMMENTS: 1. PULMONIC VALVE NOT WELL SEEN TECHNOLOGIST: MARY AQUINO
--- NOTE | 2023-09-23 13:30 | EKG ---
Test Date: 2023-09-21 Test Time: 11:05:09 Clip Bolter And Wrapper: ALICJA MEASUREMENT RESULTS: Intervals: Rate: 59 DC: 194 QRSD: 88 QT: 412 QTc: 407 Barnwell: P: 57 DC: 194 QRS: -17 T: 54 INTERPRETIVE STATEMENTS: Sinus bradycardia Otherwise normal ECG Compared to ECG 01/29/2009 09:37:15 Sinus rhythm no longer present Sinus arrhythmia no longer present Electronically Signed On 09-23-23 13:24:45 INDUSTRIAL PAINTER by Esteban Quinn
--- NOTE | 2023-10-10 15:02 | P.DS ---
Discharge Date: 09/22/23 Disposition: ROUTINE DISCHARGE Discharge Condition: GOOD Reason for Admission: CVA - Problems (1) Acute CVA (cerebrovascular accident) Status: Acute (2) Vertigo Status: Acute (3) Nausea and vomiting Status: Acute (4) Ataxia Status: Acute Brief History of Present Illness: Patient is a 68-year-old female who came to the hospital with vertigo as well as nausea and vomiting. Patient presented to the emergency room with ataxia. And patient was seen in the emergency room for further workup. Patient appears to have a posterior some circulation infarct. Patient continue with anti- platelet therapy and statin therapy. Patient will be admitted to the hospital for further workup. Hospital Course: Patient has done well during hospital stay. Clinically, patient is much better. At this time, patient is stable for discharge home. Patient will follow-up with Neurology and PCP as an outpatient. Vital Signs/Physical Exam: Temp Pulse Resp BP Pulse Ox 98 F 73 17 149/94 H 100 10/10/23 15:01 09/22/23 13:00 09/22/23 13:00 09/22/23 13:00 09/22/23 13:00 General: Alert, In no apparent distress, Oriented x3 Laboratory Data at Discharge: WBC 7.60 thou/uL (4.3-10.9) 09/22/23 04:24 Hgb 12.4 g/dL (12.0-15.0) D 09/22/23 04:24 Hct 36.1 % (36.0-45.0) 09/22/23 04:24 Plt Count 277 thou/uL (152-406) 09/22/23 04:24 PT 11.5 SECONDS (9.5-12.5) 09/21/23 10:50 INR 1.05 09/21/23 10:50 APTT 33.0 SECONDS (24.3-36.9) 09/21/23 10:50 Sodium 135 mEq/L (136-145) L D 09/22/23 04:24 Potassium 4.5 mEq/L (3.5-5.1) 09/22/23 04:24 BUN 15 mg/dL (7-18) 09/22/23 04:24 Creatinine 0.89 mg/dL (0.55-1.02) 09/22/23 04:24 Glucose 146 mg/dL (74-106) H 09/22/23 04:24 Phosphorus 3.4 mg/dL (2.5-4.9) 09/22/23 04:24 Magnesium 1.8 mg/dL (1.6-2.4) 09/22/23 04:24 Total Bilirubin 0.4 mg/dL (0.2-1.0) 09/22/23 04:24 AST 9 U/L (15-37) L 09/22/23 04:24 ALT 28 U/L (13-56) 09/22/23 04:24 Alkaline Phosphatase 65 U/L (45-117) 09/22/23 04:24 Triglycerides 58 mg/dL (<150) 09/22/23 04:24 Cholesterol 102 mg/dL (<200) 09/22/23 04:24 HDL Cholesterol 54 mg/dL (40-60) 09/22/23 04:24 Cholesterol/HDL Ratio 1.89 09/22/23 04:24 Home Medications: Amlodipine/Valsartan [Exforge 10-320 mg Tablet] 1 tab PO DAILY 09/21/23 Ascorbic Acid [Vitamin C] 1,000 mg PO DAILY 09/21/23 Aspirin 81 mg PO DAILY 09/21/23 Calcium Carbonate/Vitamin D3 [Caltrate 600 + D Soft Chew Tab] 1 tab PO DAILY 09/21/23 Folic Acid 800 mg PO DAILY 09/21/23 Levothyroxine [Synthroid*] 50 mcg PO DAILY 09/21/23 Mecobalamin [B12 Active] 1 tab PO DAILY 09/21/23 Metformin HCl [Metformin ER Osmotic] 1,000 mg PO BID 09/21/23 Multivitamin 1 tab PO DAILY 09/21/23 [place]-3/Dha/Epa/Fish Oil [Fish Oil 1,000 mg Softgel] 1 cap PO DAILY 09/21/23 Pravastatin [Pravachol*] 40 mg PO BEDTIME 09/21/23 Repaglinide 1 mg PO DAILY 09/21/23 Zinc Gluconate [Zinc] 50 mg PO DAILY 09/21/23 carvediloL [Carvedilol] 6.25 mg PO BID 09/21/23 Clopidogrel Bisulfate [Plavix] 75 mg PO DAILY #30 tab 09/22/23 Meclizine HCl [Antivert] 25 mg PO Q8HP PRN #20 tab.chew 09/22/23 New Medications: Meclizine HCl [Antivert] 25 mg PO Q8HP PRN #20 tab.chew PRN Reason: vertigo Clopidogrel Bisulfate [Plavix] 75 mg PO DAILY #30 tab Physician Discharge Instructions: -DC IV and DC home -Follow-up with PCP in 1 to 2 weeks -Follow-up with Neurology in 1 to 2 weeks -Please call Dr. Bermeo at [phone] if any questions regarding hospital stay -Please call nursing station at [phone] if any nursing or medication questions -Return to the emergency room if symptoms worsenPROBLEM: (list out Acute Problems for the Current visit) GOAL: Clear understanding of disease process INSTRUCTIONS:-DC IV and DC home -Follow-up with PCP in 1 to 2 weeks -Follow-up with Neurology in 1 to 2 weeks -Please call Dr. Bermeo at [phone] if any questions regarding hospital stay -Please call nursing station at [phone] if any nursing or medication questions -Return to the emergency room if symptoms worsen Diet:Low salt, low fat Activity: Fall precautions DME DME: Date Ordered: Name of Company: [employer] Services Needed: Name of Company: Date or Referral: IMMUNIZATION Influenza Vaccine Indicated: No Influenza Vaccine Given: Date Given: Pneumonia Vaccine Indicated: No Pneumonia Vaccine Given: Date Given: Diet: AHA Activity: Fall precautions Followup: Khari Ugalde MD [ASSOCIATE-ACTIVE - CAN ADMIT] - Ruiz Sandhu MD [Primary Care Provider] - Time spent managing pt's care (in minutes): 35
[2023-10-10 15:19] VITALS: TEMP 98
== END 2023-09-22 13:30 | disposition home or self-care (01) ==
LOC: ER 10:14 → ERHOLD 14:14 → 3RD-ICU 14:53
PROVIDERS: ADMIT Hospitalist; ATTEND Hospitalist
DX: I63.9 Cerebral infarction, unspecified (principal); R11.2 Nausea with vomiting, unspecified; R27.0 Ataxia, unspecified; R42 Dizziness and giddiness; E11.9 Type 2 diabetes mellitus without complications; E78.00 Pure hypercholesterolemia, unspecified; I10 Essential (primary) hypertension; Z88.2 Allergy status to sulfonamides; R29.700 NIHSS score 0
CPT/HCPCS: 96365; 92977; 93005; 93306; 85025 ×2; 80048; 36415; 83735; 84100; 85610; 80061; 82565; 82947; 85730; 84436; 84443; 81003; 84484; 80053; 70450 ×2; 70496; 70498; 71045; 70551; 92610; 97112; 97161; 99291; 96366; Q9967; J8597; J3101; J1650; J7030 ×2; G0378 ×3